=== PATIENT | female | born 2000 | race Two or more races ===

== ENCOUNTER → 2021-01-22 | Outpatient (CLI) | payer OTHER | END | disposition home or self-care (01) | LOC: PPH VACUNA | DX: Z23 Encounter for immunization (principal) ==

== ENCOUNTER 2022-10-27 16:16 | Outpatient (CLI) | payer OTHER | END 2022-10-27 16:54 | disposition home or self-care (01) | LOC: PRENATAL 16:16 | PROVIDERS: ATTEND Obstetrics & Gynecology Maternal & Fetal Medicine | DX: O36.80X0 Pregnancy with inconclusive fetal viability, not applicable or unspecified (principal); Z3A.11 11 weeks gestation of pregnancy ==

== ENCOUNTER 2022-11-06 22:14 | Emergency (ER) | payer OTHER ==
[~2022-11-06] VITALS: Ht 152.4 cm; Wt 98.9 kg
[2022-11-06] MEDS ORDERED: PRENA1 TRUE CO1 EACH PO (22:52)
[2022-11-06] MEDS ORDERED: ZOFRAN8 MG PO (22:52)
[2022-11-06] MEDS ORDERED: PEPCID AC10 MG PO (22:52)
== END 2022-11-07 04:33 ==
LOC: ER 22:14
DX: O20.9 Hemorrhage in early pregnancy, unspecified (principal); Z3A.13 13 weeks gestation of pregnancy

== ENCOUNTER 2022-12-26 12:51 | Outpatient (CLI) | payer OTHER ==
[~2022-12-26 12:51] MED LIST: PEPCID AC10 MG PO; PRENA1 TRUE CO1 EACH PO; ZOFRAN8 MG PO
== END 2022-12-26 14:52 | disposition home or self-care (01) ==
LOC: PRENATAL 12:51
PROVIDERS: ATTEND Obstetrics & Gynecology Maternal & Fetal Medicine
DX: O35.9XX0 Maternal care for (suspected) fetal abnormality and damage, unspecified, not applicable or unspecified (principal); O35.3XX0 Maternal care for (suspected) damage to fetus from viral disease in mother, not applicable or unspecified; Z3A.20 20 weeks gestation of pregnancy

== ENCOUNTER 2023-03-21 15:09 | Outpatient (CLI) | payer OTHER | END 2023-03-21 16:00 | disposition home or self-care (01) | LOC: PRENATAL 15:09 | PROVIDERS: ATTEND Obstetrics & Gynecology Maternal & Fetal Medicine | DX: O26.849 Uterine size-date discrepancy, unspecified trimester (principal); O35.9XX0 Maternal care for (suspected) fetal abnormality and damage, unspecified, not applicable or unspecified; O36.8199 Decreased fetal movements, unspecified trimester, other fetus; Z3A.32 32 weeks gestation of pregnancy ==

== ENCOUNTER 2023-04-28 16:53 | Inpatient (IN) | payer OTHER ==
[~2023-04-28] VITALS: Ht 170.2 cm; Wt 3.6 kg
== END 2023-05-13 14:07 | disposition home or self-care (01) | DRG 788 ==
LOC: LDR 05-09 06:05 → O/R 05-10 15:23 → OB/GYN 05-10 16:40 → LDR 05-13 15:30
PROVIDERS: ADMIT Obstetrics & Gynecology; ATTEND Obstetrics & Gynecology
PROC: 3E0P7VZ Introduction of Hormone into Female Reproductive, Via Natural or Artificial Opening (ICD-10-PCS; 2023-05-09)
PROC: 4A1HXCZ Monitoring of Products of Conception, Cardiac Rate, External Approach (ICD-10-PCS; 2023-05-09)
PROC: 3E033VJ Introduction of Other Hormone into Peripheral Vein, Percutaneous Approach (ICD-10-PCS; 2023-05-10)
PROC: 10D00Z1 Extraction of Products of Conception, Low, Open Approach (ICD-10-PCS; principal; 2023-05-10 14:00)
DX: O61.0 Failed medical induction of labor (principal); O33.5XX0 Maternal care for disproportion due to unusually large fetus, not applicable or unspecified; O36.63X0 Maternal care for excessive fetal growth, third trimester, not applicable or unspecified; O62.2 Other uterine inertia; Z3A.39 39 weeks gestation of pregnancy; Z37.0 Single live birth; Z20.822 Contact with and (suspected) exposure to COVID-19

== ENCOUNTER 2023-05-02 13:25 | Outpatient (CLI) | payer OTHER | END 2023-05-02 16:18 | disposition home or self-care (01) | LOC: PRENATAL 13:25 | PROVIDERS: ATTEND Obstetrics & Gynecology Maternal & Fetal Medicine | DX: O26.849 Uterine size-date discrepancy, unspecified trimester (principal); O36.8199 Decreased fetal movements, unspecified trimester, other fetus; O36.60X0 Maternal care for excessive fetal growth, unspecified trimester, not applicable or unspecified; Z3A.38 38 weeks gestation of pregnancy ==